=== PATIENT | female | born 1980 | race Caucasian/White ===

== ENCOUNTER 2016-12-16 17:02 | Emergency (ER) | payer MEDICAID ==
[~2016-12-16] VITALS: Ht 165.1 cm; Wt 61.2 kg
[2016-12-16 17:12] VITALS: BP_SYST 116
--- NOTE | 2016-12-16 17:18 | NUR ---
Patient to ER bed 06 to gown for evaluation. Side rails up. Report given to Geraldine
--- NOTE | 2016-12-16 17:30 | NUR ---
Pt states that she came in due to lower abdominal pain that has been hurting for a month. Pt stated that she went to her PCP and they ordered a CT but has not gotten the referral yet. Pt states that the pain has been increasing for the past couple days and is now 8/10n denies n/v or diarrhea. No other injuries/complaints per pt or noted.
[2016-12-16] MEDS ORDERED: MORPHINE 4 MG/ML INJ. SYRINGE IVP ONE (17:45)
[2016-12-16] MEDS ORDERED: DIPHENHYDRAMINE INJ 50 MG/ML VIAL IVP ONE (17:45)
[2016-12-16] MEDS ORDERED: NACL 0.9% 1,000 ML IV ONE (17:45)
[2016-12-16 17:58] LABS: BASOPHILS % (AUTO) 0.5 % (0.0-2.0); EOSINOPHILS # (AUTO) 0.1 K/uL (0.0-0.4); EOSINOPHILS % (AUTO) 2.1 % (0.0-4.0); HEMATOCRIT 35.3 % (36-48); HEMOGLOBIN 12.3 g/dL (12.0-16.0); LYMPHOCYTES # (AUTO) 1.5 K/uL (1.0-5.5); LYMPHOCYTES % (AUTO) 26.9 % (20.5-51.5); MEAN CORPUSCULAR HEMOGLOBIN 31 pg (27-31); MEAN CORPUSCULAR HGB CONC 35 % (32-36); MEAN CORPUSCULAR VOLUME 90 fL (79.0-98.0); MONOCYTES # (AUTO) 0.3 K/uL (0.0-1.0); MONOCYTES % (AUTO) 4.7 % (1.7-9.3); NEUTROPHILS # (AUTO) 3.5 K/uL (1.8-7.7); NEUTROPHILS % (AUTO) 65.8 % (40.0-70.0); PLATELET COUNT (AUTO) 195 K/uL (130-430); RED BLOOD CELL COUNT(AUTO) 3.92 MIL/uL (4.2-6.2); RED CELL DISTRIBUTION WIDTH 12.2 % (9.0-15.0); WHITE BLOOD COUNT (AUTO) 5.4 K/uL (4.8-10.8)
[2016-12-16 18:02] LABS: BILIRUBIN,URINE NEGATIVE (NEGATIVE); BLOOD, URINE NEGATIVE (NEGATIVE); CLARITY/URINE CLEAR (CLEAR); COLOR,URINE YELLOW (YELLOW); GLUCOSE,URINE NEGATIVE (NEGATIVE); KETONES,URINE NEGATIVE (NEGATIVE); LEUKOCYTE ESTERASE ,URINE NEGATIVE (NEGATIVE); NITRITE, URINE NEGATIVE (NEGATIVE); PROTEIN URINE NEGATIVE (NEGATIVE); UROBILINOGEN,URINE 0.2 (0.2-1.0)
--- NOTE | 2016-12-16 18:30 | NUR ---
Pt returned from US in stable condition.
[2016-12-16 18:52] LABS: CALCIUM 8.8 mg/dL (8.4-11.0); CREATININE 0.76 mg/dL (0.55-1.30); POTASSIUM 4.1 mmol/L (3.5-5.1)
[2016-12-16 18:56] LABS: ALBUMIN 3.8 g/dL (3.4-4.8); TOTAL PROTEIN, SERUM 6.9 g/dL (6.4-8.3)
--- NOTE | 2016-12-16 19:00 | NUR ---
Gave report to Dean, pt is stable with no noted distress or discomfort
--- NOTE | 2016-12-16 19:10 | NUR ---
Patient stable. Vital signs within normal limits. Patient denies pain. No complaints at this time. Will continue to monitor.
--- NOTE | 2016-12-16 19:50 | NUR ---
[employer] Amin at bedside for reassessment.
[2016-12-16 21:05] VITALS: BP_SYST 118
--- NOTE | 2016-12-16 21:05 | NUR ---
Patient given written and verbal discharge instructions and verbalizes understanding. ER MD discussed with patient the results and treatment provided. Patient in stable condition. ID arm band removed. IV catheter removed intact and dressing applied, no active bleeding. Rx of Bagley and Motrin given. Patient educated on pain management and to follow up with PMD. Pain Scale 0/10. Opportunity for questions provided and answered.
== END 2016-12-16 21:05 | disposition home or self-care (01) ==
LOC: SED 17:04
DX: R10.2 Pelvic and perineal pain (principal)
CPT/HCPCS: 36415; 74176; 76830; 76857; 80053; 81003; 81025; 83690; 85025; 96361; 96374; 96375; 99285; J1200; J2270; J7030

== ENCOUNTER 2022-06-12 11:19 | Emergency (ER) | payer MEDICAID ==
[~2022-06-12] VITALS: Ht 165.1 cm; Wt 70.3 kg
--- NOTE | 2022-06-12 11:19 | NUR ---
Patient triaged and placed in waiting room. VSS and patient appears in no acute distress at this time. Accompanied by SELF, awaiting available bed, and MD notified of need for MSE.
[2022-06-12 11:20] VITALS: BP_SYST 155
--- NOTE | 2022-06-12 11:20 | NUR ---
PT STATES AFTER GETTING OFF A BARSTOOL 8 DAYS AGO, PT STATES SHE STARTED HAVING PAIN TO LEFT BUTTOCK THAT RADIATES DOWN TO LEFT THIGH. PT STATES IT IS HARD FOR HER TO SLEEP, WALK OR EVEN SIT DOWN. PT STATES SHE'S NEVER HAD THIS ISSUE BEFORE.
--- NOTE | 2022-06-12 12:00 | NUR ---
SEEN AND EVALUATED IN TRIAGE ROOM BY DR FRANCISCO
--- NOTE | 2022-06-12 12:20 | NUR ---
PT TOLD ADMITTING SHE WAS GOING TO STEP OUT TO MAKE A PHONE CALL. RADIOLOGY CALLED FOR PT FOR TESTING, UNABLE TO LOCATE PT IN WAITING ROOM AND IN FRONT OF HOSPITAL. ATTEMPTED TO CALL PT AND PHONE NUMBER DID NOT WORK.
[2022-06-12] MEDS ORDERED: KETOROLAC TROMETHAMINE 60 MG/2 ML VIAL IM ONE (12:45)
[2022-06-12] MEDS ORDERED: predniSONE 20 MG TABLET PO ONE (12:45)
--- NOTE | 2022-06-12 13:01 | NUR ---
PT RETURNED AND RADIOLOGY INFORMED PT HAD RETURNED. THEY WILL GET HER SOON FOR TESTING.
[2022-06-12] MEDS ORDERED: METH-634 PO (13:08)
[2022-06-12] MEDS ORDERED: IBUP-1969 PO (13:08)
[2022-06-12] MEDS ORDERED: TRAM50TA2 PO (13:08)
[2022-06-12] MEDS ORDERED: PRED20TA PO (13:08)
--- NOTE | 2022-06-12 13:21 | NUR ---
CALLED AGAIN BY RADIOLOGY AND UNABLE TO LOCATE PT IN WAITING ROOM OR IN FRONT OF HOSPITAL. NOTIFIED
--- NOTE | 2022-06-12 13:40 | NUR ---
STILL UNABLE TO LOCATE PT. ACCORDING TO ER ADMITTING, THEY SAW HER GET INTO HER CAR AND LEAVE. DR FRANCISCO NOTIFIED
== END 2022-06-12 13:40 | disposition left against medical advice (07) ==
LOC: SED 11:19
DX: M54.32 Sciatica, left side (principal); M54.50 Low back pain, unspecified; Z79.899 Other long term (current) drug therapy
CPT/HCPCS: 99283; J1885; J7512

== ENCOUNTER 2022-07-09 10:47 | Emergency (ER) | payer MEDICAID ==
[~2022-07-09] VITALS: Ht 165.1 cm; Wt 70.3 kg
[2022-07-09 10:47] VITALS: BP_SYST 155
[~2022-07-09 10:47] MED LIST: IBUP-1969 PO; METH-634 PO; PRED20TA PO; TRAM50TA2 PO
--- NOTE | 2022-07-09 10:50 | NUR ---
Patient triaged and placed in waiting room. VSS and patient appears in no acute distress at this time. Accompanied by SPOUSE, awaiting available bed, and MD notified of need for MSE.
--- NOTE | 2022-07-09 11:00 | NUR ---
PTS SPOUSE IS REQUESTING A FULL BODY MRI TO BE DONE TODAY. I EXPLAINED TO PT THAT THE DR WILL ASSESS PT AND DECIDE WHICH TESTING WILLBE DONE.
--- NOTE | 2022-07-09 11:10 | NUR ---
DR VELAZQUEZ OUT TO TRIAGE ROOM TO EVALUATE PT.
[2022-07-09 11:23] LABS: BASOPHILS % (AUTO) 0.6 % (0.0-2.0); EOSINOPHILS # (AUTO) 0.2 K/uL (0.0-0.4); EOSINOPHILS % (AUTO) 2.6 % (0.0-4.0); HEMATOCRIT 39.6 % (36-48); HEMOGLOBIN 13.7 g/dL (12.0-16.0); LYMPHOCYTES # (AUTO) 1.9 K/uL (1.0-5.5); LYMPHOCYTES % (AUTO) 28.1 % (20.5-51.5); MEAN CORPUSCULAR HEMOGLOBIN 32 pg (27-31); MEAN CORPUSCULAR HGB CONC 35 % (32-36); MEAN CORPUSCULAR VOLUME 92 fL (79.0-98.0); MONOCYTES # (AUTO) 0.4 K/uL (0.0-1.0); MONOCYTES % (AUTO) 6.1 % (1.7-9.3); NEUTROPHILS # (AUTO) 4.3 K/uL (1.8-7.7); NEUTROPHILS % (AUTO) 62.6 % (40.0-70.0); PLATELET COUNT (AUTO) 237 K/uL (130-430); RED BLOOD CELL COUNT(AUTO) 4.33 MIL/uL (4.2-6.2); RED CELL DISTRIBUTION WIDTH 13.2 % (9.0-15.0); WHITE BLOOD COUNT (AUTO) 6.9 K/uL (4.8-10.8)
[2022-07-09 12:33] LABS: ANION GAP 5 (5-15); CALCIUM 8.7 mg/dL (8.4-11.0); CHLORIDE 101 mmol/L (98-107); CREATININE 0.72 mg/dL (0.55-1.30); GLUCOSE 95 mg/dL (70-99); UREA NITROGEN, BLOOD 12 mg/dL (8-21)
[2022-07-09 12:35] LABS: GFR AFRICAN AMERICAN 116 mL/min (>90)
[2022-07-09 12:38] LABS: ALANINE AMINOTRANSFERASE 25 U/L (12-78); ALBUMIN 3.8 g/dL (3.4-4.8); AMYLASE 57 U/L (0-100); ASPARTATE AMINOTRANSFERASE 25 U/L (10-37); C-REACTIVE PROTEIN QUANT < 0.2 mg/dL (0-0.5); LIPASE 120 U/L (73-393); TOTAL BILIRUBIN 0.5 mg/dL (0.0-1.0)
--- NOTE | 2022-07-09 14:59 | NUR ---
Searched for patient in waiting room, in front of hospital. Pt is not reachable.
--- NOTE | 2022-07-09 15:00 | NUR ---
PT ELOPED FROM WAITING ROOM
== END 2022-07-09 15:00 | disposition left against medical advice (07) ==
LOC: SED 10:47
DX: M54.50 Low back pain, unspecified (principal); M25.512 Pain in left shoulder; Z79.899 Other long term (current) drug therapy
CPT/HCPCS: 36415; 72100-TC; 73030; 76376; 80053; 82150; 83605; 83690; 84703; 85025; 86140; 99285

== ENCOUNTER 2023-06-29 01:16 | Emergency (ER) | payer MEDICAID, OTHER ==
[~2023-06-29] VITALS: Ht 162.6 cm; Wt 65.8 kg
[2023-06-29] MEDS ORDERED: LIDOCAINE 1%, 20 ML MDV 20 ML ONE (01:33)
[2023-06-29 01:40] VITALS: BP_SYST 128; PULSE 82; RESP 18; TEMP 98.3; O2SAT 97
[2023-06-29] MEDS ORDERED: LIDOCAINE 1% 10 MG/ML, 20 ML MDV INJ ONE (01:45)
== END 2023-06-29 01:55 | disposition home or self-care (01) ==
LOC: SED 01:16
DX: S61.216A Laceration without foreign body of right little finger without damage to nail, initial encounter (principal); Z79.899 Other long term (current) drug therapy; W26.8XXA Contact with other sharp object(s), not elsewhere classified, initial encounter; Y93.89 Activity, other specified; Y92.89 Other specified places as the place of occurrence of the external cause; Y99.8 Other external cause status
CPT/HCPCS: 99282; 12002; J2001